=== PATIENT | female | born 1995 | race Caucasian/White ===

== ENCOUNTER 2020-07-09 08:37 | Outpatient (REF) | payer OTHER, SELFPAY ==
[2020-07-09 09:27] LABS: COVID-19 Test Negative (Negative)
== END 2020-07-09 08:38 | disposition home or self-care (01) ==
LOC: HO.LAB 08:37
PROVIDERS: Visit Provider Internal Medicine
DX: Z20.828 Contact with and (suspected) exposure to other viral communicable diseases (principal)
CPT/HCPCS: 87635

== ENCOUNTER 2020-07-11 07:00 | Outpatient (REF) | payer OTHER, SELFPAY ==
[2020-07-11 07:23] LABS: COVID-19 Test Negative (Negative)
== END 2020-07-11 07:01 | disposition home or self-care (01) ==
LOC: HO.LAB 07:00
PROVIDERS: Visit Provider Internal Medicine
DX: Z20.828 Contact with and (suspected) exposure to other viral communicable diseases (principal)
CPT/HCPCS: 87635

== ENCOUNTER 2021-07-22 08:07 | Outpatient (REF) | payer OTHER, SELFPAY ==
[2021-07-22 08:40] LABS: Strep A Nucleic Acid Negative (Negative)
[2021-07-22 09:31] LABS: Influenza A PCR NEGATIVE (Negative); Influenza B PCR NEGATIVE (Negative); Resp Syncy Virus RNA Qual PCR NEGATIVE (Negative); SARS COV2 PCR INHOUSE NEGATIVE (Negative)
[2021-07-22 10:03] LABS: Monotest Negative (Negative)
== END 2021-07-22 08:08 | disposition home or self-care (01) ==
LOC: HO.LAB 08:07
PROVIDERS: Visit Provider Emergency Medicine
DX: Z20.822 Contact with and (suspected) exposure to COVID-19 (principal); J02.9 Acute pharyngitis, unspecified
CPT/HCPCS: 0241U; 36415; 86308; 87651

== ENCOUNTER 2021-09-14 10:47 | Outpatient (REF) | payer OTHER, SELFPAY ==
[2021-09-14 11:10] LABS: Strep A Nucleic Acid Negative (Negative)
== END 2021-09-14 10:48 | disposition home or self-care (01) ==
LOC: HO.LAB 10:47
PROVIDERS: Visit Provider Emergency Medicine
DX: J02.9 Acute pharyngitis, unspecified (principal)
CPT/HCPCS: 36415; 87651

== ENCOUNTER 2021-09-21 03:48 | Outpatient (REF) | payer OTHER, SELFPAY ==
[2021-09-21 04:21] LABS: COVID-19 Test Positive (Negative)
== END 2021-09-21 03:49 | disposition home or self-care (01) ==
LOC: HO.LAB 03:48
PROVIDERS: Visit Provider Internal Medicine
DX: Z20.822 Contact with and (suspected) exposure to COVID-19 (principal)
CPT/HCPCS: 36415; 87635

== ENCOUNTER 2022-04-19 06:14 | Outpatient (REF) | payer OTHER, SELFPAY ==
[2022-04-19 06:47] LABS: COVID-19 Test Negative (Negative)
== END 2022-04-19 06:15 | disposition home or self-care (01) ==
LOC: HO.LAB 06:14
PROVIDERS: Visit Provider Internal Medicine
DX: Z20.822 Contact with and (suspected) exposure to COVID-19 (principal)
CPT/HCPCS: 87635

== ENCOUNTER → 2022-07-07 13:15 | Outpatient (RCR) | payer OTHER, SELFPAY ==
[2020-09-23 09:32] LABS: SARS-COV-2 PCR UMBRL Not Detected
[2020-10-01 13:21] LABS: SARS-COV-2 PCR UMBRL Not Detected
== END | disposition home or self-care (01) ==
LOC: HO.EMPCOV 09-21 06:10
PROVIDERS: Visit Provider Internal Medicine
DX: Z20.828 Contact with and (suspected) exposure to other viral communicable diseases (principal)
CPT/HCPCS: 36415; C9803; U0003

== ENCOUNTER 2023-01-09 08:36 | Emergency (ER) | payer OTHER, SELFPAY ==
--- NOTE | ~2023-01-09 | CT_ITS ---
EXAMINATION: CT HEAD WITHOUT CONTRAST CLINICAL INFORMATION: Headache, status post mild trauma. COMPARISON: None TECHNIQUE: Contiguous axial imaging was performed from the skull base to vertex without intravenous administration of contrast. This CT examination was performed using dose optimization techniques as appropriate, variously including the following: *Automated exposure control *Adjustment of mA and/or kV according to patient size (this includes techniques or standardized protocols for targeted exams where dose is matched to indication/reason for exam; i.e. extremities or head) *Use of iterative reconstruction technique DLP: 593 mGy-cm FINDINGS: There is no evidence of acute intracranial hemorrhage or edematous territorial infarction. There is no abnormal attenuation within the brain parenchyma. Savage-white matter differentiation is preserved. The ventricles are normal in size and configuration. No evidence for obstructive hydrocephalus. No abnormal mass effect or midline shift. No extra-axial fluid collections. No acute soft tissue or osseous abnormalities. Partially imaged mucous retention cyst in the left maxillary sinus. The mastoids and middle ear cavities are clear. CT/CT head/brain wo IV con IMPRESSION: No evidence of acute intracranial hemorrhage or edematous territorial infarction.
[2023-01-09 08:40] VITALS: BP 143/96; PULSE 71; RESP 16; TEMP 36.4; O2SAT 99; BMI 32.5
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
[2023-01-09 10:20] VITALS: BP 128/86; PULSE 61; RESP 14; O2SAT 100
== END 2023-01-09 10:30 | disposition home or self-care (01) ==
PROVIDERS: Emergency Provider Emergency Medicine
DX: S09.90XA Unspecified injury of head, initial encounter (principal); Y04.2XXA Assault by strike against or bumped into by another person, initial encounter; Y93.89 Activity, other specified; Y92.238 Other place in hospital as the place of occurrence of the external cause; Y99.0 Civilian activity done for income or pay
CPT/HCPCS: 70450; 99284

== ENCOUNTER → 2023-01-13 13:30 | Outpatient (BNVA) | payer OTHER, SELFPAY | DX: Z13.89 Encounter for screening for other disorder (principal) | CPT/HCPCS: 99203 ==

== ENCOUNTER → 2023-06-22 09:47 | Outpatient (BNVA) | payer OTHER, SELFPAY | DX: Z13.89 Encounter for screening for other disorder (principal) | CPT/HCPCS: 99204 ==

== ENCOUNTER → 2023-06-28 14:42 | Outpatient (BNVA) | payer OTHER, SELFPAY | PROVIDERS: Visit Provider Physician Assistant | DX: Z13.89 Encounter for screening for other disorder (principal) | CPT/HCPCS: 99214 ==

== ENCOUNTER → 2023-07-12 09:22 | Outpatient (BNVA) | payer OTHER, SELFPAY | PROVIDERS: Visit Provider Physician Assistant Medical | DX: Z13.89 Encounter for screening for other disorder (principal) | CPT/HCPCS: 99213 ==

== ENCOUNTER → 2023-07-26 09:15 | Outpatient (BNVA) | payer OTHER, SELFPAY | PROVIDERS: Visit Provider Physician Assistant | DX: Z13.89 Encounter for screening for other disorder (principal) | CPT/HCPCS: 99213 ==

== ENCOUNTER 2023-08-08 15:00 | Outpatient (RCR) | payer OTHER, SELFPAY ==
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
--- NOTE | 2023-09-05 09:15 | MHC.PT.DC ---
[facility] [place] Office [place] Office [place] Office [address] Sharri Delong [address] [phone] F: [phone] F: [phone] F: [phone] F: [phone] Physical Therapy Discharge Report Diagnosis: R shoulder injury Date of Surgery: NA Date of Evaluation: 06/29/23 Date of Discharge: 09/05/23 Treatments to Date: 7 Cancellations to Date: 3 No Shows to Date: 0 Discharge Status: Improved Function Independent with HEP Discharge Summary: Yanet completed 7 PT visits and is independent with all HEPs. She has made improvements with PT. She is therefore being d/c from PT. Electronically signed by: Shaye Blake, PT DPT Please sign and return to therapist. Thank you for your referral.
== END 2023-09-05 09:15 | disposition home or self-care (01) ==
LOC: HO.PT 15:00
PROVIDERS: Visit Provider Physician Assistant
DX: S49.91XD Unspecified injury of right shoulder and upper arm, subsequent encounter (principal)
CPT/HCPCS: 97014; 97110; 97140; 97161; 97530

== ENCOUNTER → 2023-08-09 08:53 | Outpatient (BNVA) | payer OTHER, SELFPAY | PROVIDERS: Visit Provider Physician Assistant | DX: Z13.89 Encounter for screening for other disorder (principal) | CPT/HCPCS: 99214 ==

== ENCOUNTER 2023-08-22 11:46 | Outpatient (REF) | payer OTHER, SELFPAY | END 2023-08-22 11:47 | disposition home or self-care (01) | LOC: HO.MRI 11:46 | PROVIDERS: Visit Provider Physician Assistant | DX: Z13.89 Encounter for screening for other disorder (principal) ==

== ENCOUNTER → 2023-09-05 09:58 | Outpatient (BNVA) | payer OTHER, SELFPAY | PROVIDERS: Visit Provider Physician Assistant | DX: Z13.89 Encounter for screening for other disorder (principal) | CPT/HCPCS: 99214 ==

== ENCOUNTER 2023-09-06 09:00 | Outpatient (AMB) | payer OTHER, SELFPAY ==
[2023-09-06 09:10] VITALS: BMI 33.0
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
== END 2023-09-06 09:55 | disposition home or self-care (01) ==
PROVIDERS: Visit Provider Physical Medicine & Rehabilitation
DX: S46.011A Strain of muscle(s) and tendon(s) of the rotator cuff of right shoulder, initial encounter (principal); M79.18 Myalgia, other site; Y99.0 Civilian activity done for income or pay; Z04.2 Encounter for examination and observation following work accident
CPT/HCPCS: 99204

== ENCOUNTER → 2023-09-06 09:00 | Outpatient (BNVA) | payer OTHER, SELFPAY | PROVIDERS: Visit Provider Physical Medicine & Rehabilitation | DX: M79.18 Myalgia, other site (principal); S46.011A Strain of muscle(s) and tendon(s) of the rotator cuff of right shoulder, initial encounter | CPT/HCPCS: 99202 ==

== ENCOUNTER 2025-06-12 13:26 | Outpatient (AMB) | payer OTHER, SELFPAY ==
--- NOTE | 2025-06-12 13:30 | MHC.PC.OV ---
Vital Signs 06/12/25 13:35 Height 5 ft 4.02 in Weight 227 lb 2 oz BMI 39.0 BP 112/80 Blood Pressure Location Rt brachial Position Sitting Pulse 84 Pulse Source Pulse Oximeter Temp 97.2 F Temp Source Temporal Artery Scan Pulse Oximetry (%) 98 Oxygen Delivery Method Room Air Intake Visit Reasons: Est. Care / Requesting PE Staffing Recruiter Required: No Accompanied by: Self / Same As Patient Allergies No Known Allergies Allergy (Verified 06/12/25 13:58) Medication List - Last Reconciled 06/12/25 by Marisa Rizzo PA-C No Known Home Meds Tobacco use date assessed: 06/12/25 Dental Screening Dental Screen Date: 06/12/25 Did you have a dental visit in the last 12 months?: Yes Was dental information given to patient?: Patient has dentist HPI Est. Care / Requesting PE HPI Details The patient is a 29-year-old female presenting for a new patient appointment and physical examination. The patient reports experiencing significant fatigue, which she describes as being able to sleep at any time of the day, even after consuming caffeine. She has not been on any medications and has not seen a healthcare provider since her pediatric visits. The patient has a family history of diabetes, with her grandfather affected, and her mother had Chronic Obstructive Pulmonary Disease (COPD) attributed to smoking. Her mother at the age of 53, with COPD listed as the primary cause and diabetes as a secondary finding, although she was not diagnosed with diabetes during her lifetime. The patient has been experiencing visual disturbances, described as wonky vision, and has requested a referral to an webfocus developer for further evaluation. Additionally, a possible thyroid nodule was palpated during the examination, prompting a recommendation for an ultrasound to rule out any significant pathology. The patient was found to have an A1c level of 5.6%, indicating prediabetes. She expressed interest in weight management options, and a weight loss medication was discussed as a potential intervention, pending insurance approval. 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 - Education: Recently graduated with a master's degree in mental health counseling. - Family status: Recently . - Exercise: Reports significant fatigue impacting daily activities. - Nutrition: Has a preference for sweets, breads, and pastas, which may contribute to weight management challenges. [facility] Medical History (Updated 06/12/25 @ 14:26 by Marisa Rizzo PA-C) Annual physical exam Fatigue Decreased vision Thyroid nodule Prediabetes Class 2 obesity with body mass index (BMI) of 35 to 39.9 without comorbidity Strain of rotator cuff of right shoulder Family History Mother COPD (chronic obstructive pulmonary disease) Bipolar 1 disorder Father No problems noted. 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 1. Little interest or pleasure in doing things: not at all 2. Feeling down, depressed, or hopeless: not at all 3. Trouble falling or staying asleep, or sleeping too much: not at all 4. Feeling tired or having little energy: not at all 5. Poor appetite or overeating: not at all 6. Feeling bad about yourself - or that you are a failure or have let yourself or your family down: not at all 7. Trouble concentrating on things, such as reading the newspaper or watching television: not at all 8. Moving or speaking so slowly that other people could have noticed. Or the opposite - being so fidgety or restless that you have been moving around a lot more than usual: not at all 9. Thoughts that you would be better off or of hurting yourself in some way: not at all Total score: 0 Depression Screening Interpretation: Negative Depression Screening Done: Yes 10680 - PHQ-9 Billing: Yes Source: Developed by Drs. Rolf Keane, Shalonda Zepeda, Braden Rodriguez and colleagues, with an educational hayde from [employer]. Thrive Questionnaire Date Thrive assessed: 06/12/25 I am a: Patient What is your living situation today?: I have a steady place to live Within the past 12 months, did the food you bought not last and you didn't have the money to get more?: Never true Within the past 12 months, did you worry whether your food would run out before you got money to buy more?: Never true Do you have trouble paying for medicines?: No Do you have trouble getting transportation to medical appointments?: No Do you have trouble paying your heating and electricity bill?: No Do you have trouble taking care of your child, family member or friend?: No Do you have trouble with day-to-day activities such as bathing, preparing meals, shopping, managing finances, etc.?: No Are you currently unemployed and looking for a job?: No Are you interested in more education?: No Please select the resources that you would like help with: None THRIVE Score: 0 AUDIT C Alcohol Use Questionnaire (AUDIT-C) 1. How often do you have a drink containing alcohol?: 2-4 times a month 2. How many drinks containing alcohol do you have on a typical day when you are drinking?: 1 or 2 Total Score: 2 Score Reviewed/Action Taken: No VINI-7 AMB Questionnaire VINI-7 Date VINI - 7 assessed: 06/12/25 Feeling nervous, anxious, or on edge: 0 = Not at all Not being able to stop or control worryin = Not at all Worrying too much about different things: 0 = Not at all Trouble relaxin = Not at all Being so restless that it is hard to sit still: 0 = Not at all Becoming easily annoyed or irritable: 0 = Not at all Feeling afraid as if something awful might happen: 0 = Not at all Total VINI-7 score (0-4 normal; 5-9 mild; 10-14 moderate; 15-21 severe): 0 Source: Developed by Drs. Rolf Keane, Shalonda Zepeda, Braden Rodriguez and colleagues, with an educational hayde from [employer]. VINI-7 Assessment Billing VINI-7 Assessment Tool: VINI-7 Assessment 97217 Review of Systems Const Details: - General: Reports significant fatigue, able to sleep at any time of the day. - Endocrine: Denies any previous thyroid issues, but a possible nodule was palpated during examination. - Ophthalmologic: Reports wonky vision, referral to ophthalmology requested. - Gastrointestinal: Denies black or bloody stools. - Cardiovascular: Denies chest pain or dyspnea. - Respiratory: Denies shortness of breath. - Neurological: Denies any neurological symptoms. All systems reviewed & are unremarkable except as noted in HPI and below Physical exam (Primary Care) Vital Signs: Last Vital Signs Temp 97.2 F 06/12/25 13:35 Pulse 84 06/12/25 13:35 BP 112/80 06/12/25 13:35 Pulse Ox 98 06/12/25 13:35 Oxygen Delivery Method Room Air 06/12/25 13:35 Care Plan Goal for BP management: <140/90 at Goal BMI result Body Mass Index 39.0 BMI Assessment/Plan discussion: High BMI High, discussed plan: lifestyle, weight reduction, dietary, physical activity, alcohol moderation and other Tobacco/Smoking Status: Tobacco use Status Tobacco use date assessed 06/12/25 06/12/25 13:35 Patient Tobacco Use Status Never used Tobacco 06/12/25 13:35 PHQ-9: PHQ-9 Score PHQ-9: Total score 0 06/12/25 14:09 Depression Screening Interpretation: Negative Thrive Assessment: Date of Thrive Assessment Date Thrive assessed 06/12/25 06/12/25 13:35 Const Other: Appearance: Alert. Oriented X3. No acute distress. Head: Normal external exam. Normocephalic. Atraumatic. Eyes: Pupils are equal, round, and reactive to light. Extraocular movements intact. Conjunctiva and sclera normal. Eyelids normal. Ears: External auditory canal normal. Tympanic membranes normal. Throat: Pharynx normal. Uvula midline. Moist mucous membranes. Neck: Normal inspection. Neck supple. Full range of motion. No adenopathy. Thyroid Normal. No meningeal signs. No neck mass noted. Cardiovascular: Normal heart rate and rhythm. Heart sound normal. No murmurs noted. Pulses normal throughout. Respiratory: No respiratory distress. Painless inspiration. Breath sounds normal. No wheezes/rales/rhonchi noted. Chest nontender. No accessory muscle usage noted or decreased air movement noted. Abdomen: Soft and nontender. Bowel sounds normal in all 4 quadrants. No distention noted. No organomegaly noted. No visible injury noted. Back: No costovertebral angle tenderness. Full range of motion noted. Skin: Skin warm and dry. Normal skin color. Normal skin turgor. No rashes/lesions/lacerations noted. Extremities: No lower extremity edema. Extremities exhibit normal range of motion. Extremities nontender. Neuro: Oriented X 3. No motor deficit. No sensory deficit. Reflexes normal. Office Procedures Vision Screening Right Eye: 20/20 Left Eye: 20/25 Bilateral: 20/20 Color: Pass 07853 - Vision Screening Flu Questionnaire Does the patient have a severe egg allergy?: No Does the patient have severe life threatening allergies?: No Does the patient have a fever or illness today?: No Has the patient ever had Guillain-[place] Syndrome?: No Has the patient ever had any past reaction to a flu shot?: No Results AMB Hemoglobin A1c AMB Hemoglobin A1c 5.6 % Last Edit by Ana Lilia Haas CMA on 06/12/25 14:10 Immunizations Fluarix [id number] (PF) 45 mcg (15 mcg x 3)/0.5 mL IM syringe Performing Provider: Marisa Rizzo PA-C [place] [facility] Documented (not given) by: Ana Lilia Haas CMA on 06/12/25 13:52 Reason Not Given: Received Previously Results Reviewed Results Reviewed: Laboratory Last Values Hgb A1c (Clinic) 5.6 % (4.0-6.0) 06/12/25 14:03 - Labs: A1c level of 5.6%, indicating prediabetes. Coding Level of Care Code New Pt Level 4 (65941) New Pt Prev Care 18-39yr(20074 Diagnoses Annual physical exam Z00.00 Class 2 obesity with body mass index (BMI) of 35 to 39.9 without comorbidity E66.812 Prediabetes R73.03 Fatigue R53.83 Thyroid nodule E04.1 Decreased vision H54.7 CPT Codes Vision Screening - Vision Screenin - Vision Screening ([id number]) Additional Codes PHQ-9 - 83383 - PHQ-9 Billing: Yes ([id number]) VINI-7 Assessment Billing - VINI-7 Assessment Tool: VINI-7 Assessment 54165 ([id number]) Time Spent (min) 50 Assessment & Plan Assessment & Plan (1) Annual physical exam: Code(s): Z00.00 - Encounter for general adult medical examination without abnormal findings Category: Medical (2) Class 2 obesity with body mass index (BMI) of 35 to 39.9 without comorbidity: Code(s): E66.812 - Obesity, class 2 Category: Medical Plan: Patient to improve diet and exercise regimen. Will also attempt to send Zepbound pending insurance approval for weight loss and increase dosing every month to achieve weight loss. Patient did not want to have any bariatric surgery at this time. Condition is chronic and stable continue to monitor. (3) Prediabetes: Code(s): R73.03 - Prediabetes Category: Medical Plan: The patient's A1c level was found to be 5.6%, indicating prediabetes. Lifestyle modifications, including dietary changes and increased physical activity, were recommended. A weight loss medication was discussed as a potential intervention, pending insurance approval. (4) Fatigue: Code(s): R53.83 - Other fatigue Category: Medical Plan: The patient reports significant fatigue, which may be related to her lifestyle and dietary habits. A comprehensive blood panel, including CBC, CMP, thyroid function tests, and hormone levels, was ordered to investigate potential underlying causes. Along with a sleep study. (5) Thyroid nodule: Code(s): E04.1 - Nontoxic single thyroid nodule Category: Medical Plan: A possible thyroid nodule was palpated during the physical examination. An ultrasound of the thyroid was recommended to further evaluate the nodule. (6) Decreased vision: Comment: Right eye 20/20 left eye 20/25 Code(s): H54.7 - Unspecified visual loss Category: Medical Plan: The patient reports experiencing wonky vision and has requested a referral to an webfocus developer for further evaluation. Plan Plan Patient was informed and verbally consented to the use of an ambient scribe for clinic note documentation during this visit. 1. Fatigue The patient reports significant fatigue, which may be related to her lifestyle and dietary habits. A comprehensive blood panel, including CBC, CMP, thyroid function tests, and hormone levels, was ordered to investigate potential underlying causes. 2. Prediabetes The patient's A1c level was found to be 5.6%, indicating prediabetes. Lifestyle modifications, including dietary changes and increased physical activity, were recommended. A weight loss medication was discussed as a potential intervention, pending insurance approval. 3. Possible Thyroid Nodule A possible thyroid nodule was palpated during the physical examination. An ultrasound of the thyroid was recommended to further evaluate the nodule. 4. Visual Disturbance The patient reports experiencing wonky vision and has requested a referral to an webfocus developer for further evaluation. During the visit, we discussed the patient's fatigue and potential underlying causes, including lifestyle and dietary factors. We reviewed her A1c level, which indicated prediabetes, and discussed lifestyle modifications and the possibility of weight loss medication, pending insurance approval. A possible thyroid nodule was identified, and an ultrasound was recommended for further evaluation. The patient also reported visual disturbances, and a referral to an webfocus developer was made. Orders: Orders Influenza [id number] Immunization Today Z23 - Encounter for immunization Comprehensive [place]. Panel Fast Today Z00.00 - Encounter for general adult medical examination without abnormal findings Magnesium Today Z00.00 - Encounter for general adult medical examination without abnormal findings UA CC w/rflx Micro + Cult Today Z00.00 - Encounter for general adult medical examination without abnormal findings TSH reflex Free T4 Today Z00.00 - Encounter for general adult medical examination without abnormal findings Dihydrotestosterone Today Z00.00 - Encounter for general adult medical examination without abnormal findings Testosterone, Free/Total Today Z00.00 - Encounter for general adult medical examination without abnormal findings Progesterone Today Z00.00 - Encounter for general adult medical examination without abnormal findings Prolactin Today Z00.00 - Encounter for general adult medical examination without abnormal findings Estrogen Today Z00.00 - Encounter for general adult medical examination without abnormal findings C Reactive Protein Today Z00.00 - Encounter for general adult medical examination without abnormal findings Complete Blood Count Auto Diff Today Z00.00 - Encounter for general adult medical examination without abnormal findings Lipid Panel Today Z00.00 - Encounter for general adult medical examination without abnormal findings Liver Panel Today Z00.00 - Encounter for general adult medical examination without abnormal findings Vitamin B12 and Folate Today Z00.00 - Encounter for general adult medical examination without abnormal findings Vitamin D 25-OH Total Today Z00.00 - Encounter for general adult medical examination without abnormal findings DHEA Sulfate Today Z00.00 - Encounter for general adult medical examination without abnormal findings Lutenizing Hormone Today Z00.00 - Encounter for general adult medical examination without abnormal findings AMB Hemoglobin A1c Today Z13.9 - Encounter for screening, unspecified US thyroid Today E04.1 - Nontoxic single thyroid nodule AMB Vision Screening Today Z01.00 - Encounter for examination of eyes and vision without abnormal findings RT home sleep study Today R53.83 - Other fatigue Referrals Ophthalmology Referral H54.7 - Unspecified visual loss Medications: New tirzepatide (weight loss) (Zepbound) for 4 weeks 2.5 mg (0.5 mL) subcut QWEEK 2 mL 0RF 4 weeks E66.812 - Obesity, class 2, R73.03 - Prediabetes Patient Instructions: - Schedule and complete blood work as ordered, including fasting for cholesterol and hormone levels. - Follow up with an webfocus developer for vision evaluation. - Maintain a balanced diet and increase physical activity to manage prediabetes. - Monitor for any changes in symptoms and report them during the next visit. - Await contact for scheduling a thyroid ultrasound.
[2025-06-12 13:35] VITALS: BP 112/80; PULSE 84; TEMP 36.2; O2SAT 98; BMI 39.0
--- OUTSIDE RECORDS SUMMARY | 2025-06-12 18:01 | XMS_ITS | Encounter Summary ---
Author Organization [facility] Address [address] [place] [address] Phone Care Team Providers Care Supervisor Tubing Name Role Phone Kelly Aguiar LEYLA Primary Care Provider [phone] Reason for Visit * Reason Comments Med Refill Encounter Details Date Type Department Care Team (Late st Contact Info) Description 09/28/2019 Refill [facility] [address] [place] [id number] Savanna [place], Encounter for surveillance of contraceptive pills Social History Tobacco Use Types Packs/Day Years Used Date Smoking Tobacco: Never Comments:Never Smoker Alcohol Use Standard Drinks/Week Comments Yes 0 (1 standard drink = 0.6 oz pur e alcohol) socially Comments Unknown Sex and Gender Information Value Date Recorded Sex Assigned at Not on file Legal Sex Female 6:20 PM EDT Gender Identity Not on file Sexual Orientation Straight 10/10/2019 11 :07 AM EST documented as of this encounter Miscellaneous Notes * Telephone Encounter - Ana Lilia Haas MA - 09/28/2019 9:53 AM EST Last [facility] 06/27/18 Lm for patient to call back to schedule [facility] Medication is due, Dr. Gillette will you fill documented in this encounter Plan of Treatment Not on file documented as of this encounter Visit Diagnoses Diagnosis Encounter for surveillance of contraceptive pills documented in this encounter Care Teams Supervisor Tubing Relationship Specialty Start Date End Date Kelly Aguiar NP [facility] [place] [address] PCP - General Pediatrics 01/04/21 documented as of this encounter
--- OUTSIDE RECORDS SUMMARY | 2025-06-12 18:01 | XMS_ITS | Clinical Summary ---
Author Organization [facility] Address [address] [place] [address] Phone Care Team Providers Care Wholesale Buyer Name Role Phone Kelly Aguiar PER DIEM NURSE Primary Care Provider [phone] Allergies No known active allergies Medications norethindrone-ethi nyl estradiol-iron () 1.5-30 MG-MCG per tabletIndications: Encounter for surveillance of contraceptive pills Take 1 tablet by mouth once daily. 84 tablet 0 Active Active Problems Problem Noted Date Diagnosed Date Pharyngitis 05/24/2019 Esophageal reflux 03/09/2015 Overview (06/12/2018): GERD (530.81) Onset: 03/09/2015 Added by: Kyra Shafer Immunizations Immunization Administration Dates Next Due DTaP 5 05/18/2002, 1,05/19/1998,03/20,01/17/1996,1995 Hep B, ped/adol 03/20/1996,1995,1995 Hib (PRP-T) 05/19/1998, 6,01/17/1996,11/16 IPV 05/18/2001 Influenza, injectable, quadr ivalent, preservative free 07/19/2019 MMR 05/18/2001,09/16/1996 Meningococcal Conj (Menactra) MCV4P 01/29/2014,0 06/16/2008 OPV 03/20/1996,01/17/1996,1995 Tdap 04/10/2017,04/23/2007 Varicella 06/16/2008,06/01/1999 Family History Medical History Relation Name Comments No Known Problems Father Smooth No Known Problems Maternal Grandfather No Known Problems Maternal Grandmother No Known Problems Mother Charisse No Known Problems Paternal Grandfather No Known Problems Paternal Grandmother Relation Name Status Comments Brother 1 Daniel Alive Brother 2 Samy Alive Father Smooth Maternal Grandfather Maternal Grandmother Mother Charisse Paternal Grandfather Paternal Grandmother Sister Liana Alive Social History Tobacco Use Types Packs/Day Years Used Date Smoking Tobacco: Never Comments:Never Smoker Alcohol Use Standard Drinks/Week Comments Yes 0 (1 standard drink = 0.6 oz pur e alcohol) socially Hunger/Food Answer Date Recorded In the last 12 months, did y ou or your family ever eat less than you felt you should because there wasn't enough money for food? No 10/10/2019 Stable Housing Answer Date Recorded Are you worried that in the next 2 months you may not have stable housing? No 10/10/2019 Transportation Concerns Answer Date Rec orded In the last 12 months, have you or your family ever had to go without healthcare because you didn't have a way to get there? No 10/10/2019 Hazards in Home Answer Date Recorded Think about the place you li ve. Do you have problems with any of the following? Pests (mice or roaches), mold, no/not working smoke detectors, water leaks, no window guards. No 2019 Financing Utilities Answer Date Recorde d In the last 12 months, has t he electric, gas, oil, or water company threatened to shut off your services in your home? No 10/10/2019 Safety at Home Answer Date Recorded Are you or your family worried about feeling saf e in your home? No 10/10/2019 Outside Support Answer Date Recorded Do you feel that you need mo re support from other people or programs to help you care for yourself or your family? No 10/10/2019 Understanding Health Concerns Answer Da te Recorded Do you need help understandi ng your or your child's healthcare needs (diagnosis, medications, plan, etc.)? No 10/10/2019 Financing Health Concerns Answer Date R ecorded In the last 12 months, was t here a time when your child needed to see a doctor or get medications or supplies but could not because of cost? No 10/10/2019 Missing School or Work Answer Date Rigoberto rded Did you or your child miss s chool or work because of a health problem that could have been avoided? No 10/10/2019 Comments Unknown Sex and Gender Information Value Date Recorded Sex Assigned at Not on file Legal Sex Female 6:20 PM EDT Gender Identity Not on file Sexual Orientation Straight 10/10/2019 11 :07 AM EST Last Filed Vital Signs Vital Sign Reading Time Taken Comments Blood Pressure 108/60 05/26/2020 2:11 PM EDT Pulse 64 10/10/2019 10:45 AM EST Temperature 35.9 C (96.7 F) 03/19/2021 11:35 AM EDT Respiratory Rate - - Oxygen Saturation - - Inhaled Oxygen Concentration - - Weight 87 kg (191 lb 11.2 oz) 05/26/2020 2:11 PM EDT Height 161.9 cm (5' 3.75 ) 05/26/2020 2:11 PM ED T Body Mass Index 33.16 05/26/2020 2:11 PM EDT Plan of Treatment Health Maintenance Due Date Last Done Comments HPV Vaccines (1 - 3-dose SCDM series) 2022 Influenza Vaccines (#1) 2025 07/19/2019 COVID-19 Vaccine ( season) 2025 10/02/2020, 09/15/2020 DTaP,Tdap,and Td Vaccines (8 - Td or Tdap) 04/10/2027 04/10/2017, 04/23/2007, 05/18/2002, Additional history exists Hepatitis B Vaccines Completed 03/20/1996, 1995, 1995 HIB Vaccines Completed 05/19/1998, 11/1995, 01/17/1996, Additional history exists IPV Vaccines Completed 05/18/2001, 11/1995, 01/17/1996, Additional history exists MMR Vaccines Completed 05/18/2001, 09/16/1996 Varicella Vaccines Completed 06/16/2008, 06/01/1999 Meningococcal Vaccine Completed 01/29/2014, 008 Hepatitis A Vaccines Aged Out No long er eligible based on patient's age to complete this topic Men B Vaccine Aged Out No longer elig ible based on patient's age to complete this topic Pneumococcal Vaccine Aged Out No long er eligible based on patient's age to complete this topic Procedures * Due to [facility] law, this organization might not be sharing sensitive test results. Procedure Name Priority Date/Time Associated Diagnosis Comments CHLAMYDIA AND GONORRHEA, AMPLIFIED Routine 10/10/2019 10:54 AM EST Well adult exam from Last 3 Months or Most Recently Relevant to Health Maintenance Results * Due to [facility] law, this organization might not be sharing sensitive test results. * Chlamydia and Gonorrhea, Amplified (10/10/2019 10:54 AM EST) Chlamydia Trachomatis, DNA Probe NEGATIVE (NEG) [facility] Comment: No Chlamydia Trachomatis RNA detected in this patient's sample (REFERENCE RANGE/NORMAL VALUE: NOT DETECTED) Note: This test uses manager auto- mediated amplification method to detect rRNA from C. Trachomatis URINE GC AMP PROBE NEGATIVE (NEG) [facility] Comment: No Neisseria Gonorrhoeae RNA detected in this patient's sample (REFERENCE RANGE/NORMAL VALUE: NOT DETECTED) NOTE: This test uses manager auto-mediated amplification method to detect rRNA from N.Gonorrhoeae. A negative result does not preclude infection. In the case of a negative urine result, testing of an endocervical(female) or urethral (male) specimen is recommended if there is high clinical suspicion of infection. Due to very high sensitivity of Nucleic Acid Amplification Test, false positive results may occur. Therefore, specimen handling is extremely important. In patients in whom the disease is unlikely, additional sample for testing should be considered after an initial positive result. The performance characteristics of this test have not been evaluated in children. The Aptima Combo2 assay is not intended for the evaluation of suspected sexual abuse or for other medico-legal indications. The ordering provider should assess if the patient had consensual sex without risk of sexual abuse. Consult the [facility] if needed. Contact phone number . Therapeutic failure or success cannot be determined with the Aptima Combo2 assay since nucleic acid may persist following appropriate antimicrobial therapy. The Centers for Disease Control and Prevention (CDC) recommends confirmatory retesting using culture or a different nucleic acid amplification test when positive results occur, if indicated. Testing performed or reported by [facility], a Service of [facility], [address] [place] [address] Medardo Gerard MD, Local Delivery Driver Urine 10/10/2019 10:5 4 AM EST 10/10/2019 12:46 PM EST Savanna Gillette DO LAB MICROBIOLOGY - GENERAL ORDE BUDDY Final Result [facility] from Last 3 Months or Most Recently Relevant to Health Maintenance Insurance [employer] [place] Care Teams Wholesale Buyer Relationship Specialty Start Date End Date Kelly Aguiar NP [facility] [place] [address] PCP - General Pediatrics 01/04/21
--- OUTSIDE RECORDS SUMMARY | 2025-06-12 18:01 | XMS_ITS | Encounter Summary ---
Author Organization [facility] Address [address] [place] [address] Phone Care Team Providers Care Strategic Sourcing Specialist Name Role Phone Kelly Aguiar NP Primary Care Provider [phone] Encounter Details Date Type Department Care Team (Late st Contact Info) Description 09/27/2011 Conversion Encounter [facility] [address] [place] [address] [place] [address] Social History Tobacco Use Types Packs/Day Years Used Date Smoking Tobacco: Never Assessed Comments Unknown Sex and Gender Information Value Date Recorded Sex Assigned at Not on file Legal Sex Female 6:20 PM EDT Gender Identity Not on file Sexual Orientation Straight 10/10/2019 11 :07 AM EST documented as of this encounter Plan of Treatment Not on file documented as of this encounter Visit Diagnoses Not on filedocumented in this encounter Care Teams Strategic Sourcing Specialist Relationship Specialty Start Date End Date Kelly Aguiar NP [address] [place] [address] [place] [address] PCP - General Pediatrics 01/04/21 documented as of this encounter
== END 2025-06-12 14:16 | disposition home or self-care (01) ==
LOC: HO.HMCSH 13:26
PROVIDERS: PCP Physician Assistant Medical; Visit Provider Physician Assistant Medical
DX: Z00.00 Encounter for general adult medical examination without abnormal findings (principal); R73.03 Prediabetes; E66.812 Obesity, class 2; Z68.39 Body mass index [BMI] 39.0-39.9, adult; R53.83 Other fatigue; E04.1 Nontoxic single thyroid nodule; H54.7 Unspecified visual loss; Z23 Encounter for immunization

== ENCOUNTER → 2025-06-12 13:26 | Outpatient (BNVA) | payer OTHER, SELFPAY | PROVIDERS: PCP Physician Assistant Medical; Visit Provider Physician Assistant Medical | DX: Z00.00 Encounter for general adult medical examination without abnormal findings (principal); Z23 Encounter for immunization; E66.812 Obesity, class 2; Z68.39 Body mass index [BMI] 39.0-39.9, adult; R73.03 Prediabetes; R53.83 Other fatigue; E04.1 Nontoxic single thyroid nodule; H54.7 Unspecified visual loss; Z13.31 Encounter for screening for depression; Z13.39 Encounter for screening examination for other mental health and behavioral disorders | CPT/HCPCS: 83036; 96127 ==

== ENCOUNTER 2025-08-11 07:28 | Outpatient (REF) | payer OTHER, SELFPAY ==
--- NOTE | ~2025-08-11 | US_ITS ---
EXAMINATION: US THYROID HISTORY: E04.1 - Nontoxic single thyroid nodule TECHNIQUE: Real-time grayscale ultrasound imaging was performed and images were reviewed. COMPARISON: There are no prior studies available for comparison. FINDINGS: SIZE: The right thyroid lobe measures 5.4 x 1.8 x 1.1 cm. The left thyroid lobe measures 4.4 x 1.3 x 1.5 cm. The isthmus measures 4 mm. FLOW: Flow to the gland is normal. ECHOGENICITY: The echotexture of the gland is homogeneous. NODULES: There is a 5 mm cyst in the midportion of the left thyroid lobe. No solid nodules are identified. US/US thyroid IMPRESSION: 5 mm cyst in the left thyroid lobe. Otherwise unremarkable thyroid ultrasound. ACR TI-RADS Guidelines TR1 (0 points): Benign. No follow-up or biopsy required TR2 (2 points): Not Suspicious. No biopsy or follow up indicated TR3 (3 points): Mildly Suspicious. FNA if >= 2.5 cm, Follow if >= 1.5 cm TR4 (4-6 points): Moderately Suspicious. FNA if >= 1.5 cm, Follow if >= 1.0 cm TR5 (>=7 points): Highly Suspicious. FNA if >= 1.0 cm, Follow if >= 0.5 cm Electronically signed by: Rolf Mooney MD 08/11/2025 11:02 AM [facility]
[2025-08-11 10:00] LABS: MANUAL DIFF FLAG NO
[2025-08-11 10:17] LABS: Hematocrit 38.5 % (37.0-47.0); Hemoglobin 12.6 g/dl (12.0-16.0); Imm Gran Abs Auto 0.01 X10*3/uL (0.00-0.03); Imm Gran Pct Auto 0.1 % (0.0-0.4); Lymphocytes Absolute Auto 2.8 X10*3/uL (1.2-4.9); Mean Corpuscular HGB Conc 32.7 g/dl (31.0-35.0); Mean Corpuscular Hemoglobin 29.4 pg (27.0-33.0); Mean Corpuscular Volume 89.7 fL (80.0-98.0); NRBC Abs Auto 0.000 X10*3/uL (0.0-0.012); NRBC Pct Auto 0.0 /100WBC (0.0-0.2); Platelet Count 427 X10*3/uL (160-400); Red Blood Count 4.29 X10*6/uL (4.20-5.50); White Blood Count 7.6 X10*3/uL (4.8-10.8)
[2025-08-11 10:20] LABS: Appearance Urine Cloudy; Glucose Urine UA Negative (Negative); PH 5.0 (5.0-9.0); Specific Gravity - Urine 1.025 (1.005-1.025); UMIC TRIGGER UACC YES
[2025-08-11 10:23] LABS: UACC Culture Trigger YES
[2025-08-11 10:31] LABS: Alanine Aminotransferase 24 U/L (0-31); Albumin Level 4.3 g/dL (3.5-5.0); Alkaline Phosphatase 82 U/L (39-117); Anion Gap 12 (12-20); Aspartate Amino Transferase 36 U/L (5-31); Blood Urea Nitrogen 10 mg/dL (9-16); Calcium 9.1 mg/dL (8.4-10.2); Carbon Dioxide 27 mmol/L (22-29); Chloride 105 mmol/L (96-108); Cholesterol 150 mg/dL (<200); Estimated Glomerular Filt Rate > 60; HDL Cholesterol 42 mg/dL (>40); Magnesium 1.8 mg/dL (1.6-2.6); Potassium 3.9 mmol/L (3.3-5.1); Sodium 140 mmol/L (135-145); Total Protein 7.8 g/dL (6.5-8.0); Triglycerides 96 mg/dL (<150)
[2025-08-11 10:58] LABS: Folate 9.9 ng/mL (> or = 4.0); Vitamin B12 617 pg/mL (200-900)
[2025-08-20 13:33] LABS: Testosterone, Free 3.5 pg/mL (0.1-6.4)
== END 2025-08-11 07:29 | disposition home or self-care (01) ==
LOC: HO.HMGCX 07:28
PROVIDERS: PCP Physician Assistant Medical; Visit Provider Physician Assistant Medical
DX: Z00.00 Encounter for general adult medical examination without abnormal findings (principal); E04.1 Nontoxic single thyroid nodule; Z13.6 Encounter for screening for cardiovascular disorders; Z13.21 Encounter for screening for nutritional disorder
CPT/HCPCS: 36415; 76536; 80053; 80061; 80076; 81001; 82248; 82306; 82607; 82627; 82642; 82672; 82746; 83002; 83735; 84144; 84146; 84402; 84403; 84443; 85025; 86140; 87086

== ENCOUNTER → 2025-08-11 10:15 | Outpatient (BNV) | payer OTHER, SELFPAY | PROVIDERS: PCP Physician Assistant Medical; Visit Provider Radiology Diagnostic Radiology | DX: E04.1 Nontoxic single thyroid nodule (principal) | CPT/HCPCS: 76536 ==